=== PATIENT | male | born 1960 ===

== ENCOUNTER 2020-12-16 01:15 | Emergency (ER) | payer OTHER ==
[~2020-12-16] VITALS: Ht 182.9 cm; Wt 77.3 kg
[~2020-12-16 01:15] MED LIST: normal saline 1000ML IV soln IVB ONE
[2020-12-16] MEDS ORDERED: naloxone 2mg/2ml inj ONE (01:28)
--- NOTE | 2020-12-16 01:31 | NUR ---
VERBAL ORDER FOR MG NARCAN IV PUSH - MED GIVEN, LITTLE TO NO CHANGE
[2020-12-16 01:48] LABS: ABG BASE EXCESS -2.1 mmol/L (-2.0-2.0); ABG HCO3 22.6 mmol/L (22.0-26.0); ABG OXYGEN SATURATION 95.2 % (94-97); ABG PCO2 (T) 38.6 mmHg (35.0-48.0); ABG PO2 (T) 82.3 mmHg (75.0-100.0); ALLEN'S TEST Modified; FCOHb 0.3 % (0.0-3.9); FMetHb 0.3 % (0.0-1.5); FO2Hb 94.6 % (94-97); TOTAL HEMOGLOBIN 10.3 G/dl (14.0-18.0)
[2020-12-16 02:23] LABS: BASOPHILS % (AUTO) 0.2 % (0-1); EOSINOPHILS % (AUTO) 0 % (0-6); HEMATOCRIT 28.1 % (42.0-52.0); HEMOGLOBIN 9.4 g/dl (14.0-17.9); LYMPHOCYTES # (AUTO) 0.3 X10'3 (1.1-4.8); MEAN CORPUSCULAR HEMOGLOBIN 31.7 PG (27.0-31.0); MEAN CORPUSCULAR HGB CONC 33.3 g/dL (33.0-36.5); MEAN CORPUSCULAR VOLUME 95.1 FL (78-98); MEAN PLATELET VOLUME 7.6 FL (7.4-10.4); MONOCYTES # (AUTO) 0.7 X10'3 (0-0.9); MONOCYTES % (AUTO) 6.1 % (2-12); NEUTROPHILS # (AUTO) 10.2 X10'3 (1.8-7.7); NEUTROPHILS % (AUTO) 90.7 % (42-75); PLATELET COUNT 277 X10'3 (140-440); RED BLOOD COUNT 2.96 X10'6 (4.70-6.10); RED CELL DISTRIBUTION WIDTH 15.2 % (11.5-14.5); WHITE BLOOD COUNT 11.2 X10'3 (4.5-11.0)
[2020-12-16 02:30] VITALS: BP 116/61
--- NOTE | 2020-12-16 02:30 | NUR ---
Report called to [facility]. Manas swab colleccted per her request. Other labwork pending. Transport via [facility] who received report from .
[2020-12-16 02:31] LABS: ALANINE AMINOTRANSFERASE 19 U/L (12-78); ALBUMIN 2.8 G/DL (3.4-5.0); ALBUMIN/GLOBULIN RATIO 0.8 (1.1-1.5); ALKALINE PHOSPHATASE 70 IU/L (46-116); ANION GAP 14 (8-16); ASPARTATE AMINO TRANSFERASE 30 U/L (10-37); BILIRUBIN,TOTAL 0.7 MG/DL (0.1-1.0); BLOOD UREA NITROGEN 34 MG/DL (7-18); BUN/CREATININE RATIO 18.8 (5.4-32.0); CHLORIDE 104 MMOL/L (99-107); CREATININE 1.81 MG/DL (0.60-1.10); GLUCOSE 139 MG/DL (70-104); POTASSIUM 3.1 MMOL/L (3.5-5.1); SODIUM 142 MMOL/L (135-145); TOTAL CARBON DIOXIDE 24.4 MMOL/L (24-32); TOTAL PROTEIN 6.4 G/DL (6.4-8.2); eGFR 38 ML/MIN
[2020-12-16 02:34] LABS: TROPONIN I < 0.04 NG/ML (0.0-0.05)
[2020-12-16] MEDS ORDERED: fentaNYL/PF 50MCG/1 ML 2ML syringe IV ONE (02:35)
[2020-12-16 02:43] LABS: ETHANOL < 0.010 GM/DL (0.0-0.010)
[2020-12-16 02:44] LABS: CLARITY,URINE CLEAR (Clear); COLOR,URINE YELLOW (Yellow); GLUCOSE, URINE NEGATIVE (Neg); KETONES,URINE 15 mg/dl (Neg); LEUKOCYTE ESTERASE ,URINE NEGATIVE (Neg); NITRITES, URINE NEGATIVE (Neg); OCCULT BLOOD,URINE MODERATE (Neg); PH,URINE 5.5 (4.8-8.0); PROTEIN,URINE TRACE mg/dl (Neg); UA COLLECTION TYPE FOLEY CATH
[2020-12-16 02:52] LABS: URINE AMPHETAMINE SCREEN NEGATIVE (Neg); URINE BARBITUATE SCREEN NEGATIVE (Neg); URINE BENZODIAZEPINES SCREEN NEGATIVE (Neg); URINE CANNABINOID SCREEN NEGATIVE (Neg); URINE COCAINE SCREEN NEGATIVE (Neg); URINE METHADONE SCREEN NEGATIVE (Neg); URINE OPIATE SCREEN NEGATIVE (Neg); URINE PHENCYCLIDINE SCREEN NEGATIVE (Neg)
[2020-12-16 03:00] LABS: BACTERIA,URINE NONE SEEN /HPF (Neg); RBC,URINE 0-2 /HPF (0-2); WBC,URINE 0-4 /HPF (0-4)
[2020-12-16 03:01] LABS: HYALINE CASTS 0-3 /LPF (NEGATIVE); MUCUS STRANDS MODERATE /LPF (Neg); SQUAMOUS EPITHELIAL CELL,UR FEW /LPF (FEW)
== END 2020-12-16 02:40 | disposition short-term general hospital (02) ==
LOC: ER 01:15
DX: S20.219A Contusion of unspecified front wall of thorax, initial encounter (principal); I62.9 Nontraumatic intracranial hemorrhage, unspecified; R41.82 Altered mental status, unspecified; W18.39XA Other fall on same level, initial encounter; Y93.9 Activity, unspecified; Y92.89 Other specified places as the place of occurrence of the external cause; Y99.8 Other external cause status
CPT/HCPCS: 36415; 36600; 70450; 71045; 72125; 80053; 80305; 80320; 81001; 82803; 83605; 84484; 85018; 85025; 87040; 87077; 87186; 93005; 96361; 96374; 96375; 99291; J2310; J3010; J7030